=== PATIENT | male | born 1950 | race Caucasian/White ===

== ENCOUNTER 2017-03-30 15:38 | Emergency (ER) | payer OTHER ==
[2017-03-30 16:15] VITALS: BP 131/62
[2017-03-30] MEDS ORDERED: Ketorolac 30 MG/ML SDV IVPUSH ONE (16:30)
--- NOTE | 2017-03-30 16:48 | EDM.PDOC ---
ED HPI GENERAL MEDICAL PROBLEM - General Chief Complaint: General Stated Complaint: leg pain Time Seen by Provider: 03/30/17 16:12 Source of Information: Reports: Patient History Limitations: Reports: No Limitations - History of Present Illness INITIAL COMMENTS - FREE TEXT/NARRATIVE: Patient presents with bilat leg pain for the past week. He says it has been getting more and more painful, even keeping him awake at night. [facility] to check for [facility] cl[facility]. He denies any blood clots in the past. He has had two surgeries in the past 6 months: right total shoulder in October and the left shoulder 6.5 weeks ago. This has involved being more sedentary than usual. He is not on blood thinners except he took a couple aspirin in last 1-2 days. Treatments BOWL ATTENDANT: Reports: Aspirin Other Treatments BOWL ATTENDANT: 03/29/17 Bilateral Leg Pain Score (Numeric/FACES): 9 - Related Data Allergies Allergy/AdvReac Type Severity Reaction Status Date / Time No Known Drug Allergies Allergy Cannot Verified 03/30/17 16:28 Remember Home Meds: Home Meds . [Unable to Verify Home Med List] 03/30/17 [History] Past Medical History HEENT History: Reports: Impaired Vision Cardiovascular History: Reports: Hypertension - Past Surgical History Musculoskeletal Surgical History: Reports: Knee Replacement, Shoulder Replacement Other Musculoskeletal Surgeries/Procedures:: both shoulders replaced this year, One in October and one in January. left knee replacement few years ago ED ROS GENERAL - Review of Systems Review Of Systems: See Below Constitutional: Denies: Fever, Chills, Malaise, Weakness HEENT: Denies: Vision Change Respiratory: Denies: Shortness of Breath, Cough Cardiovascular: Denies: Chest Pain, Lightheadedness, Syncope GI/Abdominal: Denies: Abdominal Pain, Vomiting : Reports: No Symptoms Musculoskeletal: Reports: Leg Pain. Denies: Neck Pain, Shoulder Pain, Arm Pain , Back Pain, Hand Pain, Foot Pain Skin: Denies: Cyanosis, Jaundice, Mottled, Pallor, Diaphoresis Neurological: Denies: Confusion, Dizziness, Headache Psychiatric: Denies: Agitation, Anxiety, Confusion Hematologic/Lymphatic: Denies: Easy Bleeding ED EXAM, GENERAL - Physical Exam Exam: See Below Exam Limited By: No Limitations General Appearance: Alert, WD/WN, No Apparent Distress Eye Exam: Bilateral Eye: EOMI, Normal Inspection, PERRL Ears: Normal External Exam, Hearing Grossly Normal Nose: Normal Inspection, No Blood Throat/Mouth: Normal Inspection, Normal Lips, Normal Voice, No Airway Compromise Head: Atraumatic, Normocephalic Neck: Full Range of Motion Respiratory/Chest: No Respiratory Distress, Lungs Clear, Normal Breath Sounds Cardiovascular: Normal Peripheral Pulses, Regular Rate, Rhythm, No Murmur Peripheral Pulses: 2+: Radial (L), Radial (R), Posterior Tibial (L), Posterior Tibial (R) GI/Abdominal: No Distention Extremities: No Pedal Edema, Normal Capillary Refill, Other (The bilat calves are tender to mild squeeze and medial thighs are tender to palpation. The legs are somewhat tender to palpation in general. Calves measure 36 cm symmetrically. The legs are non-red, warm to touch but not unusually warm. No Bingham's cyst, superficial phlebitis, varicosities or cellulitis). No: Terra's Sign, Mottled, Pallor, Redness Neurological: Alert, Oriented, Normal Cognition, No Motor/Sensory Deficits Psychiatric: Normal Affect, Normal Mood Skin Exam: Warm, Dry, Intact, Normal Color, No Rash Course - Vital Signs Last Recorded V/S: Last Vital Signs Temp 99.2 F 03/30/17 16:13 Pulse 109 H 03/30/17 16:13 Resp 20 03/30/17 16:13 BP 131/62 03/30/17 16:13 Pulse Ox 96 03/30/17 16:13 - Orders/Labs/Meds Orders: Active Orders 24 hr Category Date Time Status BASIC METABOLIC PANEL,BMP [CHEM] Stat Lab 03/30/17 16:28 Ordered CBC WITH AUTO DIFF [HEME] Stat Lab 03/30/17 16:28 Ordered D Dimer [D-DIMER QUANTITATIVE] [COAG] Stat Lab 03/30/17 16:28 Ordered Meds: Medications Discontinued Medications Generic Name Dose Route Start Last Admin Trade Name Jim PRN Reason Stop Dose Admin Ketorolac Tromethamine 30 mg 03/30/17 16:30 Toradol IVPUSH 03/30/17 16:31 ONETIME ONE - Re-Assessments/Exams Free Text/Narrative Re-Assessment/Exam: 03/30/17 16:41 After exam I calculated a Wells Score of 2 which puts him at moderate probability. Will do D-dimer and other labs. He has no history of kidney disease or contraindications to NSAIDS so will give Toradol for pain control. Patient is stable. 03/30/17 17:43 D-dimer is 975. Discussed findings and recommendations with patient; he will go to [facility] in [place]. I called there and discussed case with Dr. Chong who accepted for transfer. Pt will go by private vehicle; a friend is coming to get him. Patient remained stable throughout ER course and pain is down from 9 to 3 after Toradol. Departure - Departure Time of Disposition: 17:38 Disposition: DC/Tfer to Acute Hospital 02 Condition: Good Clinical Impression: Leg pain, bilateral, Elevated d-dimer - Discharge Information Referrals: PCP,Not In Area [Primary Care Provider] - Additional Instructions: 1. Go directly to [facility] in [place]. I talked with Dr. Chong there who is expecting you. - My Orders Last 24 Hours: My Active Orders 03/30/17 16:28 BASIC METABOLIC PANEL,BMP [CHEM] Stat CBC WITH AUTO DIFF [HEME] Stat D Dimer [D-DIMER QUANTITATIVE] [COAG] Stat - Assessment/Plan Last 24 Hours: My Active Orders 03/30/17 16:28 BASIC METABOLIC PANEL,BMP [CHEM] Stat CBC WITH AUTO DIFF [HEME] Stat D Dimer [D-DIMER QUANTITATIVE] [COAG] Stat
== END 2017-03-30 17:55 ==
LOC: KA.ED 15:38
DX: M79.604 Pain in right leg (principal); M79.605 Pain in left leg; R79.1 Abnormal coagulation profile; I10 Essential (primary) hypertension; Z96.611 Presence of right artificial shoulder joint; Z96.612 Presence of left artificial shoulder joint; Z96.652 Presence of left artificial knee joint
CPT/HCPCS: 80048; 85025; 85379; 96374; 99284; J1885

== ENCOUNTER 2017-04-02 16:56 | Emergency (ER) | payer OTHER ==
[2017-04-02] MEDS ORDERED: methylPREDNISolone Acetate 80 MG/ML SDV IM ONE (18:40)
[2017-04-02] MEDS ORDERED: traMADol 50 MG Tab PO ONE (18:40)
[2017-04-02 18:47] LABS: CHLORIDE,CL 102 mmol/L (98-115); SODIUM,NA 141 mmol/L (136-145)
--- NOTE | 2017-04-02 19:37 | EDM.PDOC ---
ED HPI GENERAL MEDICAL PROBLEM - General Chief Complaint: Lower Extremity Injury/Pain Stated Complaint: PAIN IN LEGS Time Seen by Provider: 04/02/17 18:20 Source of Information: Reports: Patient History Limitations: Reports: No Limitations - History of Present Illness INITIAL COMMENTS - FREE TEXT/NARRATIVE: 66-year-old male presents to emergency room with complaints of bilateral leg and hip pain, right greater left. Patient was seen emergency room 72 hours ago with a similar complaints of. He was seen and evaluated in the emergency room Raciel Moran. He was discharged that evening and placed on some potassium replacement pills. Patient was able to ride his bike to the emergency room this evening. He has been riding his bike over the last several days due to not having a vehicle to drive. He denies significant numbness or tingling in his legs. He denies significant weakness in the legs. He denies any swelling in the legs. He denies significant back pain currently. He has no saddle paresthesias and no follow or bladder incontinence. Activity seems to increase his pain. He' s had a left knee replacement in the past. He denies significant swelling warmth or redness to his left knee. He states that his right knee and both his hips are arthritic. He has a follow-up appointment next Monday with the [facility] for his hip and knee arthritis. He denies any recent trauma or fall. Onset: Gradual Onset Date: 03/30/17 Duration: Day(s): Location: Reports: Pelvis, Lower Extremity, Left, Lower Extremity, Right Severity: Moderate Improves with: Reports: Rest Worsens with: Reports: Movement Context: Reports: Activity, Exercise Associated Symptoms: Reports: No Other Symptoms Bilateral Leg Pain Score (Numeric/FACES): 9 - Related Data Allergies Allergy/AdvReac Type Severity Reaction Status Date / Time bupropion [From Wellbutrin] Allergy Hives Verified 04/02/17 17:11 red dye Allergy Hives Verified 04/02/17 17:11 yellow dye Allergy Hives Verified 04/02/17 17:11 Home Meds: Home Meds . [Unable to Verify Home Med List] 03/30/17 [History] Past Medical History HEENT History: Reports: Cataract, Impaired Vision Cardiovascular History: Reports: Hypertension Respiratory History: Reports: Sleep Apnea Other Respiratory History: CPAP doesn't use due to frequent trips to the bathroom Gastrointestinal History: Reports: Hiatal Hernia Genitourinary History: Reports: BPH, Prostate Disorder, Retention, Urinary Musculoskeletal History: Reports: None Neurological History: Reports: Concussion Psychiatric History: Reports: Anxiety, Depression, Panic Attack Endocrine/Metabolic History: Reports: Other (See Below) Other Endocrine/Metabolic History: nodule on the thyroid Hematologic History: Reports: Other (See Below) Other Hematologic History: refuses blood transfusions - Infectious Disease History Infectious Disease History: Reports: Chicken Pox, Measles, Mumps - Past Surgical History Head Surgeries/Procedures: Reports: None HEENT Surgical History: Reports: Adenoidectomy, Tonsillectomy Cardiovascular Surgical History: Reports: None Respiratory Surgical History: Reports: None GI Surgical History: Reports: Colonoscopy, Hernia Repair/Other Endocrine Surgical History: Reports: Thyroid Biopsy Neurological Surgical History: Reports: Other (See Below) Other Neurological Surgeries/Procedures: sciatic nerve surgery Musculoskeletal Surgical History: Reports: Knee Replacement, Shoulder Replacement, Other (See Below) Other Musculoskeletal Surgeries/Procedures:: both shoulders replaced this year, One in October and one in January. left knee replacement few years ago, surgery to sciatic nerve both sides Dermatological Surgical History: Reports: None Social & Family History - Family History Family Medical History: Noncontributory - Tobacco Use Smoking Status *Q: Former Smoker Used Tobacco, but Quit: Yes Month Tobacco Last Used: january - Caffeine Use Caffeine Use: Reports: Coffee, Energy Drinks, Tea - Alcohol Use Days Per Week of Alcohol Use: 7 Number of Drinks Per Day: 2 Total Drinks Per Week: 14 - Recreational Drug Use Recreational Drug Use: No Review of Systems - Review of Systems Review Of Systems: See Below Constitutional: Reports: No Symptoms Eyes: Reports: No Symptoms Ears: Reports: No Symptoms Nose: Reports: No Symptoms Mouth/Throat: Reports: No Symptoms Respiratory: Reports: No Symptoms Cardiovascular: Reports: No Symptoms GI/Abdominal: Reports: No Symptoms Musculoskeletal: Reports: Leg Pain, Joint Pain, Muscle Pain, Muscle Stiffness. Denies: Back Pain, Joint Swelling Skin: Reports: No Symptoms Neurological: Reports: No Symptoms Psychiatric: Reports: No Symptoms ED EXAM, GENERAL - Physical Exam Exam: See Below Exam Limited By: No Limitations General Appearance: Alert, WD/WN, No Apparent Distress Back Exam: Normal Inspection, Full Range of Motion Extremities: Normal Inspection, Other (he has pain with internal rotation flexion of his right hip and left hip with limited motion of the right hip to about 10 of internal rotation left hip internal rotation is 20 flexion is about 110 bilaterally. He has mild crepitation over the right knee with general range of motion. No significant pain with gentle motion of his right knee. No swelling or warmth left knee exam shows well-healed incision motion is 0-120. Both knees are stable to varus valgus stresses) Neurological: Alert, Oriented, No Motor/Sensory Deficits Psychiatric: Depressed Mood, Flat Affect Skin Exam: Warm, Dry, Intact, Normal Color, No Rash Lymphatic: No Adenopathy Course - Vital Signs Last Recorded V/S: Last Vital Signs Temp 98.3 F 04/02/17 17:05 Pulse 100 04/02/17 17:05 Resp 16 04/02/17 17:05 BP 178/92 H 04/02/17 17:05 Pulse Ox 97 04/02/17 17:05 - Orders/Labs/Meds Orders: Active Orders 24 hr Category Date Time Status Hip Min 2V w Pelvis Bi [CR] Stat Exams 04/02/17 17:49 Taken Lumbar Spine 2 or 3V [CR] Stat Exams 04/02/17 17:47 Taken Labs: Laboratory Tests 04/02/17 04/02/17 Range/Units 18:15 18:15 WBC 6.6 (5.0-10.0) 10^3/uL RBC 4.63 (4.50-6.00) 10^6/uL Hgb 12.6 L (13.0-17.0) g/dL Hct 37.0 L (40.0-52.0) % MCV 80.0 L (82.0-92.0) fL MCH 27.1 (27.0-31.0) pg MCHC 33.9 (32.0-36.0) g/dL RDW 14.2 (11.5-14.5) % Plt Count 344 H (150-300) 10^3/uL MPV 6.2 L (7.4-10.4) fL Neut % (Auto) 55.1 (50.0-70.0) % Lymph % (Auto) 24.1 (20.0-40.0) % [place] % (Auto) 9.7 H (2.0-8.0) % Eos % (Auto) 9.3 H (1.0-3.0) % Baso % (Auto) 1.8 H (0.0-1.0) % Neut # (Auto) 3.7 (2.5-7.0) 10^3/uL Lymph # (Auto) 1.6 (1.0-4.0) 10^3/uL [place] # (Auto) 0.6 (0.1-0.8) 10^3/uL Eos # (Auto) 0.6 H (0.1-0.3) 10^3/uL Baso # (Auto) 0.1 (0.0-0.1) 10^3/uL Sodium 141 (136-145) mmol/L Potassium 3.5 (3.3-5.3) mmol/L Chloride 102 (98-115) mmol/L Carbon Dioxide 26.4 (21.0-32.0) mmol/L BUN 16 (6-25) mg/dL Creatinine 1.06 (0.51-1.17) mg/dL Est Cr Clr Drug Dosing TNP Estimated GFR (MDRD) > 60 mL/min Glucose 102 (70-110) mg/dL Calcium 9.4 (8.7-10.3) mg/dL Ethyl Alcohol < 3 (None detected) mg/dL Meds: Medications Discontinued Medications Generic Name Dose Route Start Last Admin Trade Name Anjelq PRN Reason Stop Dose Admin Methylprednisolone Acetate 160 mg 04/02/17 18:40 04/02/17 18:58 Depo-Medrol IM 04/02/17 18:41 160 mg ONETIME ONE Administration Tramadol HCl 100 mg 04/02/17 18:40 04/02/17 18:56 Ultram PO 04/02/17 18:41 100 mg ONETIME ONE Administration Tramadol HCl Confirm 04/02/17 19:44 Ultram Administered 04/02/17 19:45 Dose 100 [address] .[address] [facility] - Radiology Interpretation Free Text/Narrative:: X-rays bilateral hips Interpretation: there is bilateral hip dysplasia with loss of joint space superiorly right greater than left. No evidence of fracture or dislocation Impression: Bilateral hip DJD right greater than. 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 Ultram 50 mg 1 by mouth every 6 hours when necessary pain #30 dispensed 2. Follow-up with orthopedics at regular scheduled appointment next Monday for your hip DJD. 3. Avoid activities that cause pain discomfort such as riding her bike. - My Orders Last 24 Hours: My Active Orders 04/02/17 17:47 Lumbar Spine 2 or 3V [CR] Stat 04/02/17 17:49 Hip Min 2V w Pelvis Bi [CR] Stat - Assessment/Plan Last 24 Hours: My Active Orders 04/02/17 17:47 Lumbar Spine 2 or 3V [CR] Stat 04/02/17 17:49 Hip Min 2V w Pelvis Bi [CR] Stat Assessment:: 1. Bilateral hip DJD 2. Lumbar spine DJD Plan: 1. Ultram 50 mg 1 by mouth every 6 hours when necessary pain #30 dispensed 2. Follow-up with orthopedics at regular scheduled appointment next Monday for your hip DJD. 3. Avoid activities that cause pain discomfort such as riding her bike.
[2017-04-02] MEDS ORDERED: traMADol 50 MG Tab ONE (19:44)
[2017-04-02 23:10] VITALS: BP 156/80
== END 2017-04-02 19:50 | disposition home or self-care (01) ==
LOC: KA.ED 16:56
DX: M47.816 Spondylosis without myelopathy or radiculopathy, lumbar region (principal); M16.0 Bilateral primary osteoarthritis of hip; F41.9 Anxiety disorder, unspecified; F32.9 Major depressive disorder, single episode, unspecified; I10 Essential (primary) hypertension; Z88.5 Allergy status to narcotic agent; Z91.048 Other nonmedicinal substance allergy status; Z90.89 Acquired absence of other organs; Z87.891 Personal history of nicotine dependence
CPT/HCPCS: 36415; 72100; 73521; 80048; 85025; 96372; 99283; A9270; G0480; J1040

== ENCOUNTER 2017-05-24 14:17 | Emergency (ER) | payer OTHER ==
[2017-05-24 14:33] VITALS: BP 175/86
[2017-05-24] MEDS ORDERED: Dexamethasone 10 MG/ML SDV IM ONE (14:57)
[2017-05-24] MEDS ORDERED: Diazepam 5 MG Tab PO ONE (14:57)
[2017-05-24] MEDS ORDERED: Ketorolac 60 MG/2 ML SDV IM ONE (14:57)
--- NOTE | 2017-05-24 16:01 | EDM.PDOC ---
ED HPI GENERAL MEDICAL PROBLEM - General Chief Complaint: Back Pain or Injury Stated Complaint: BACK AND HIP PAIN Time Seen by Provider: 05/24/17 14:56 Source of Information: Reports: Patient History Limitations: Reports: No Limitations - History of Present Illness INITIAL COMMENTS - FREE TEXT/NARRATIVE: PATIENT IS A 67-YEAR-OLD GENTLEMAN WHO PRESENTS TO THE ER THIS AFTERNOON WITH A COMPLAINT OF RIGHT HIP AND LOWER BACK PAIN. DISCOMFORT IS DESCRIBED CHRONIC , RADIATES TO RIGHT LOWER EXTREMITY, HAS BEEN PRESENT FOR 30+ YEARS AND IS BEING CARED [facility]. HE DENIES ANY RECENT INJURY OR INSULT. DENIES SADDLE ANESTHESIA, TESTICULAR PAIN, BOWEL OR URINARY INCONTINENCE. SAYS HE TAKES MEDICATION PRESCRIBED FROM THE [facility], BUT HAS NOT RECEIVED IN THE MAIL OF YET. PATIENT DENIES CHEST PAIN, SHORTNESS OF BREATH, ABDOMINAL PAIN, NAUSEA, VOMITING, DIARRHEA. Onset: Gradual Duration: Chronic Location: Reports: Back, Lower Extremity, Right Quality: Reports: Ache Severity: Mild Improves with: Reports: None Worsens with: Reports: Movement Context: Denies: Trauma Associated Symptoms: Reports: No Other Symptoms Right Hip Pain Score (Numeric/FACES): 10 - Related Data Allergies Allergy/AdvReac Type Severity Reaction Status Date / Time bupropion [From Wellbutrin] Allergy Hives Verified 04/02/17 17:11 metoclopramide [From Reglan] Allergy Hives Verified 05/24/17 14:35 red dye Allergy Hives Verified 04/02/17 17:11 yellow dye Allergy Hives Verified 04/02/17 17:11 Home Meds: Home Meds Prednisone [IMW: predniSONE] 40 mg PO WITHBREAKFAST #14 tab 05/24/17 [Rx] Past Medical History HEENT History: Reports: Cataract, Impaired Vision Cardiovascular History: Reports: Hypertension Respiratory History: Reports: Sleep Apnea Other Respiratory History: CPAP doesn't use due to frequent trips to the bathroom Gastrointestinal History: Reports: Hiatal Hernia Genitourinary History: Reports: BPH, Prostate Disorder, Retention, Urinary Musculoskeletal History: Reports: None Neurological History: Reports: Concussion Psychiatric History: Reports: Anxiety, Depression, Panic Attack Endocrine/Metabolic History: Reports: Other (See Below) Other Endocrine/Metabolic History: nodule on the thyroid Hematologic History: Reports: Other (See Below) Other Hematologic History: refuses blood transfusions - Infectious Disease History Infectious Disease History: Reports: Chicken Pox, Measles, Mumps - Past Surgical History Head Surgeries/Procedures: Reports: None HEENT Surgical History: Reports: Adenoidectomy, Tonsillectomy Cardiovascular Surgical History: Reports: None Respiratory Surgical History: Reports: None GI Surgical History: Reports: Colonoscopy, Hernia Repair/Other Endocrine Surgical History: Reports: Thyroid Biopsy Neurological Surgical History: Reports: Other (See Below) Other Neurological Surgeries/Procedures: sciatic nerve surgery Musculoskeletal Surgical History: Reports: Knee Replacement, Shoulder Replacement, Other (See Below) Other Musculoskeletal Surgeries/Procedures:: both shoulders replaced this year, One in October and one in January. left knee replacement few years ago, surgery to sciatic nerve both sides Dermatological Surgical History: Reports: None Social & Family History - Family History Family Medical History: Noncontributory - Tobacco Use Smoking Status *Q: Former Smoker Used Tobacco, but Quit: Yes Month Tobacco Last Used: january - Caffeine Use Caffeine Use: Reports: Coffee, Energy Drinks, Tea - Alcohol Use Days Per Week of Alcohol Use: 7 Number of Drinks Per Day: 2 Total Drinks Per Week: 14 - Recreational Drug Use Recreational Drug Use: No ED ROS GENERAL - Review of Systems Review Of Systems: ROS reveals no pertinent complaints other than HPI. Constitutional: Reports: No Symptoms HEENT: Reports: No Symptoms Respiratory: Reports: No Symptoms Cardiovascular: Reports: No Symptoms Endocrine: Reports: No Symptoms GI/Abdominal: Reports: No Symptoms : Reports: No Symptoms Musculoskeletal: Reports: Back Pain, Leg Pain Skin: Reports: No Symptoms Neurological: Reports: No Symptoms Psychiatric: Reports: No Symptoms Hematologic/Lymphatic: Reports: No Symptoms Immunologic: Reports: No Symptoms ED EXAM,LOWER BACK PAIN/INJURY - Physical Exam Exam: See Below Exam Limited By: No Limitations General Appearance: Alert, WD/WN, No Apparent Distress Throat/Mouth: Normal Inspection, Normal Oropharynx, No Airway Compromise Head: Atraumatic, Normocephalic Neck: Normal Inspection, Supple, Non-Tender, Full Range of Motion Respiratory/Chest: No Respiratory Distress, Lungs Clear, Normal Breath Sounds, No Accessory Muscle Use, Chest Non-Tender Cardiovascular: Regular Rate, Rhythm, No Murmur GI/Abdominal: Normal Bowel Sounds, Soft, Non-Tender, No Organomegaly, No Distention, No Abnormal Bruit, No Mass Back Exam: Paraspinal Tenderness. No: CVA Tenderness (L), CVA Tenderness (R), Vertebral Tenderness Extremities: No Pedal Edema, Other (RIGHT LOWER EXTREMITY PAIN, LATERAL THIGH RADIATING TO RIGHT ANKLE.) Psychiatric: Normal Affect, Normal Mood Skin Exam: Warm, Dry, Intact, Normal Color, No Rash Lymphatic: No Adenopathy Course - Vital Signs Last Recorded V/S: Last Vital Signs Temp 98.1 F 05/24/17 14:26 Pulse 117 H 05/24/17 14:26 Resp 20 05/24/17 14:26 BP 175/86 H 05/24/17 14:26 Pulse Ox 96 05/24/17 14:26 - Orders/Labs/Meds Meds: Medications Discontinued Medications Generic Name Dose Route Start Last Admin Trade Name Jim PRN Reason Stop Dose Admin Dexamethasone 8 mg 05/24/17 14:57 05/24/17 15:34 Dexamethasone IM 05/24/17 14:58 8 mg ONETIME ONE Administration Diazepam 10 mg 05/24/17 14:57 05/24/17 15:32 Valium. PO 05/24/17 14:58 10 mg ONETIME ONE Administration Ketorolac Tromethamine 60 mg 05/24/17 14:57 05/24/17 15:36 Toradol IM 05/24/17 14:58 60 mg ONETIME ONE Administration - Re-Assessments/Exams Free Text/Narrative Re-Assessment/Exam: 05/24/17 16:01 PATIENT AFEBRILE, NONTOXIC APPEARING, VITAL SIGNS STABLE. PAIN SOMEWHAT RELIEVED. WE'LL SEND PATIENT HOME WITH PREDNISONE, HE IS EXPECTING MAIL ORDER VAL[facility]UM FROM THE [facility]. PATIENT TO FOLLOW-UP AT THE [facility] FOR CHRONIC CONDITION. Departure - Departure Time of Disposition: 16:08 Disposition: Home, Self-Care 01 Condition: Good Clinical Impression: Chronic back pain greater than 3 months duration, Sciatic leg pain Hip pain, chronic Qualifiers: Laterality: right Qualified Code(s): M25.551 - Pain in right hip; G89.29 - Other chronic pain; G89.29 - Other chronic pain - Discharge Information Instructions: Back Pain, Adult, [id number], Chronic Back Pain, Hip Pain, Sciatica, [id number] Referrals: PCP,Not In Area [Primary Care Provider] - Forms: ED Department Discharge Additional Instructions: [facility]. RETURN TO ER SOONER IF SYMPTOMS CONTINUE OR WORSEN - Assessment/Plan Assessment:: CHRONIC BACK AND HIP PAIN [facility]: [facility]
== END 2017-05-24 16:20 | disposition home or self-care (01) ==
LOC: KA.ED 14:17
DX: G89.29 Other chronic pain (principal); M25.551 Pain in right hip; M54.40 Lumbago with sciatica, unspecified side; I10 Essential (primary) hypertension; Z96.652 Presence of left artificial knee joint; Z87.891 Personal history of nicotine dependence; Z88.8 Allergy status to other drugs, medicaments and biological substances; Z91.048 Other nonmedicinal substance allergy status
CPT/HCPCS: 96372; 99283; A9270; J1100; J1885

== ENCOUNTER 2017-07-28 15:17 | Emergency (ER) | payer OTHER ==
[2017-07-28 15:32] VITALS: BP 152/85
[2017-07-28] MEDS ORDERED: methylPREDNISolone Sodium Succinate 125 MG/2 ML SDV IM ONE (16:05)
[2017-07-28] MEDS ORDERED: diphenhydrAMINE 25 MG Cap PO ONE (16:06)
[2017-07-28] MEDS ORDERED: hydrOXYzine HCl 50 MG/ML SDV IM ONE (16:07)
--- NOTE | 2017-07-28 16:18 | EDM.PDOC ---
ED HPI GENERAL MEDICAL PROBLEM - General Chief Complaint: General Stated Complaint: rash Time Seen by Provider: 07/28/17 15:45 Source of Information: Reports: Patient History Limitations: Reports: No Limitations - History of Present Illness INITIAL COMMENTS - FREE TEXT/NARRATIVE: 67-year-old male presents to the emergency room with complaints of itching and rash over his arms and legs and back. He's had these symptoms for approximately 2 weeks if not longer. He's been taking Benadryl every 6 hours for the itching. The rash does not seem to be improving. It does itch. He denies significant contact with any specific change in laundry detergent or bedding. States that he is going through quite a stressful time feels that this may be contributing to it. He denies shortness of breath, difficulty swallowing, change in voice. He has not noticed any swelling of his eyes,denies throat swelling. Onset: Gradual Duration: Week(s):, Constant Location: Reports: Back, Upper Extremity, Left, Upper Extremity, Right, Lower Extremity, Left, Lower Extremity, Right Quality: Reports: Other (itchy) Severity: Moderate Improves with: Reports: Medication (benadryl) Worsens with: Reports: None Associated Symptoms: Reports: No Other Symptoms Treatments [employer]: Reports: Other Medication(s) - Related Data Allergies Allergy/AdvReac Type Severity Reaction Status Date / Time bupropion [From Wellbutrin] Allergy Hives Verified 07/28/17 15:33 metoclopramide [From Reglan] Allergy Hives Verified 07/28/17 15:33 red dye Allergy Hives Verified 07/28/17 15:33 yellow dye Allergy Hives Verified 07/28/17 15:33 Home Meds: Home Meds Cyclobenzaprine [Flexeril] 10 mg PO TID PRN 05/24/17 [History] Hydrocodone/Acetaminophen [Hydrocodon-Acetaminophen 5-325] 1 - 2 tab PO Q6HR PRN 05/24/17 [History] Losartan [Cozaar] 100 mg PO DAILY 05/24/17 [History] Meloxicam 7.5 mg PO BID 05/24/17 [History] Omeprazole 20 mg PO DAILY 05/24/17 [History] Simvastatin [Zocor] 80 mg PO BEDTIME 05/24/17 [History] Acetaminophen [Tylenol] 650 mg PO Q4H PRN 07/28/17 [History] Carboxymethylcellulose Sodium [Refresh Tears 0.5% Ophth Soln] 15 ml EYEBOTH BID PRN 07/28/17 [History] Doxazosin [Cardura] 4 mg PO BEDTIME 07/28/17 [History] Multivitamin with Minerals [Multivitamins with Minerals] 1 each PO DAILY [History] Polyethylene Glycol 3350 [MiraLAX] 1 tbsp PO DAILY PRN 07/28/17 [History] hydrOXYzine HCl [Atarax] 25 mg PO Q6H PRN 07/28/17 [History] traZODone HCl [Trazodone HCl] 50 mg PO BEDTIME PRN 07/28/17 [History] Past Medical History HEENT History: Reports: Cataract, Impaired Vision Cardiovascular History: Reports: Hypertension Respiratory History: Reports: Sleep Apnea Other Respiratory History: CPAP doesn't use due to frequent trips to the bathroom Gastrointestinal History: Reports: Hiatal Hernia Genitourinary History: Reports: BPH, Prostate Disorder, Retention, Urinary Musculoskeletal History: Reports: None Neurological History: Reports: Concussion Psychiatric History: Reports: Anxiety, Depression, Panic Attack Endocrine/Metabolic History: Reports: Other (See Below) Other Endocrine/Metabolic History: nodule on the thyroid Hematologic History: Reports: Other (See Below) Other Hematologic History: refuses blood transfusions - Infectious Disease History Infectious Disease History: Reports: Chicken Pox, Measles, Mumps - Past Surgical History Head Surgeries/Procedures: Reports: None HEENT Surgical History: Reports: Adenoidectomy, Tonsillectomy Cardiovascular Surgical History: Reports: None Respiratory Surgical History: Reports: None GI Surgical History: Reports: Colonoscopy, Hernia Repair/Other Endocrine Surgical History: Reports: Thyroid Biopsy Neurological Surgical History: Reports: Other (See Below) Other Neurological Surgeries/Procedures: sciatic nerve surgery Musculoskeletal Surgical History: Reports: Knee Replacement, Shoulder Replacement, Other (See Below) Other Musculoskeletal Surgeries/Procedures:: both shoulders replaced this year, One in October and one in January. left knee replacement few years ago, surgery to sciatic nerve both sides Dermatological Surgical History: Reports: None Social & Family History - Family History Family Medical History: Noncontributory - Tobacco Use Smoking Status *Q: Former Smoker Used Tobacco, but Quit: Yes Month Tobacco Last Used: 1999 Second Hand Smoke Exposure: No - Caffeine Use Caffeine Use: Reports: Coffee, Energy Drinks, Tea - Alcohol Use Days Per Week of Alcohol Use: 2 Number of Drinks Per Day: 3 Total Drinks Per Week: 6 - Recreational Drug Use Recreational Drug Use: No ED ROS GENERAL - Review of Systems Review Of Systems: See Below Constitutional: Reports: No Symptoms HEENT: Reports: No Symptoms Respiratory: Reports: No Symptoms. Denies: Shortness of Breath, Wheezing Cardiovascular: Denies: Chest Pain Skin: Reports: Pruritis, Rash, Urticaria Psychiatric: Reports: Anxiety ED EXAM, GENERAL - Physical Exam Exam: See Below Exam Limited By: No Limitations General Appearance: Alert, No Apparent Distress Nose: Normal Inspection Throat/Mouth: Normal Inspection, Normal Oropharynx, Normal Voice, No Airway Compromise Head: Atraumatic Neck: Normal Inspection Respiratory/Chest: No Respiratory Distress Back Exam: Normal Inspection Extremities: Other (rashes arms and legs ) Neurological: Alert, Oriented Psychiatric: Anxious Skin Exam: Erythema, Rash Lymphatic: No Adenopathy Course - Vital Signs Last Recorded V/S: Last Vital Signs Temp 98.2 F 07/28/17 15:30 Pulse 90 07/28/17 15:30 Resp 18 07/28/17 15:30 BP 152/85 H 07/28/17 15:30 Pulse Ox 98 07/28/17 15:30 - Orders/Labs/Meds Meds: Medications Discontinued Medications Generic Name Dose Route Start Last Admin Trade Name Jim PRN Reason Stop Dose Admin Diphenhydramine HCl 50 mg 07/28/17 16:06 07/28/17 16:11 Benadryl PO 07/28/17 16:07 50 mg ONETIME ONE Administration Hydroxyzine HCl 50 mg 07/28/17 16:07 07/28/17 16:15 Vistaril IM 07/28/17 16:08 50 mg ONETIME ONE Administration Methylprednisolone Sodium Succinate 125 mg 07/28/17 16:05 07/28/17 16:11 Solu-Medrol IM 07/28/17 16:06 125 mg ONETIME ONE Administration Departure - Departure Time of Disposition: 16:24 Disposition: Home, Self-Care 01 Condition: Good Clinical Impression: Hives of unknown origin - Discharge Information Instructions: Hives Referrals: PCP,Not In Area [Primary Care Provider] - Forms: ED Department Discharge Additional Instructions: 1. Calamine lotion for itching 2. Continue with Benadryl 25-50 mg every 6 hours as needed for itching. 3. Follow-up with primary care next week if symptoms do not seem to be improving. - Assessment/Plan Assessment:: 1. Hives Plan: 1. Patient was given 125 mg IV and Solu-Medrol 2. Given 50mg IM of Vistaril 3. Given 50 mg by mouth Benadryl. 4. Recommend getting calamine lotion for itching and he'll continue with the Benadryl at home. 5. Follow-up with the primary care next week if symptoms do not seem to be improving.
== END 2017-07-28 16:35 | disposition home or self-care (01) ==
LOC: KA.ED 15:17
DX: L50.9 Urticaria, unspecified (principal); I10 Essential (primary) hypertension; Z87.891 Personal history of nicotine dependence; Z79.899 Other long term (current) drug therapy; Z91.041 Radiographic dye allergy status; Z88.8 Allergy status to other drugs, medicaments and biological substances
CPT/HCPCS: 96372; 99282; A9270; J2930; J3410

== ENCOUNTER 2017-08-06 15:27 | Emergency (ER) | payer OTHER ==
--- NOTE | 2017-08-06 16:05 | EDM.PDOC ---
ED HPI GENERAL MEDICAL PROBLEM - General Chief Complaint: Chest Pain Stated Complaint: LEFT ARM AND CHEST PAIN Time Seen by Provider: 08/06/17 15:45 Source of Information: Reports: Patient History Limitations: Reports: No Limitations - History of Present Illness INITIAL COMMENTS - FREE TEXT/NARRATIVE: Patient presents with pain in left side of neck and jaw, pain in left triceps, numbness/tingling of left forearm and fingers that started about 1515 this afternoon. This is better now but still some tingling in the fingers. He also felt lightheaded when he stood up. He tells me that for the past 5 days he has felt very short of breath when he goes up 10-12 stairs; so much that he has to stop and catch his breath for a minute. He denies any chest pain/tightness with that. He experienced that this morning at 0930 also. He has had tightness across the chest with exertion but the most recent occurrence of this was 2-3 days ago. He denies any history of ND, stroke, stents; he does have hypertension and high cholesterol. He denies tobacco use or diabetes. Left Chest Pain Score (Numeric/FACES): 2 - Related Data Allergies Allergy/AdvReac Type Severity Reaction Status Date / Time bupropion [From Wellbutrin] Allergy Hives Verified 08/06/17 15:33 metoclopramide [From Reglan] Allergy Hives Verified 08/06/17 15:33 red dye Allergy Hives Verified 08/06/17 15:33 yellow dye Allergy Hives Verified 08/06/17 15:33 Home Meds: Home Meds Cyclobenzaprine [Flexeril] 10 mg PO TID PRN 05/24/17 [History] Losartan [Cozaar] 100 mg PO DAILY 05/24/17 [History] Meloxicam 7.5 mg PO BID 05/24/17 [History] Omeprazole 20 mg PO DAILY 05/24/17 [History] Simvastatin [Zocor] 80 mg PO BEDTIME 05/24/17 [History] Acetaminophen [Tylenol] 650 mg PO Q4H PRN 07/28/17 [History] Carboxymethylcellulose Sodium [Refresh Tears 0.5% Ophth Soln] 15 ml EYEBOTH BID PRN 07/28/17 [History] Doxazosin [Cardura] 4 mg PO BEDTIME 07/28/17 [History] Multivitamin with Minerals [Multivitamins with Minerals] 1 each PO DAILY [History] Polyethylene Glycol 3350 [MiraLAX] 1 tbsp PO DAILY PRN 07/28/17 [History] hydrOXYzine HCl [Atarax] 25 mg PO Q6H PRN 07/28/17 [History] traZODone HCl [Trazodone HCl] 50 - 100 mg PO BEDTIME 07/28/17 [History] Past Medical History HEENT History: Reports: Cataract, Impaired Vision Cardiovascular History: Reports: Hypertension Respiratory History: Reports: Sleep Apnea Other Respiratory History: CPAP doesn't use due to frequent trips to the bathroom Gastrointestinal History: Reports: Hiatal Hernia Genitourinary History: Reports: BPH, Prostate Disorder, Retention, Urinary Musculoskeletal History: Reports: None Neurological History: Reports: Concussion Psychiatric History: Reports: Anxiety, Depression, Panic Attack Endocrine/Metabolic History: Reports: Other (See Below) Other Endocrine/Metabolic History: nodule on the thyroid Hematologic History: Reports: Other (See Below) Other Hematologic History: refuses blood transfusions - Infectious Disease History Infectious Disease History: Reports: Chicken Pox, Measles, Mumps - Past Surgical History Head Surgeries/Procedures: Reports: None HEENT Surgical History: Reports: Adenoidectomy, Tonsillectomy Cardiovascular Surgical History: Reports: None Respiratory Surgical History: Reports: None GI Surgical History: Reports: Colonoscopy, Hernia Repair/Other Endocrine Surgical History: Reports: Thyroid Biopsy Neurological Surgical History: Reports: Other (See Below) Other Neurological Surgeries/Procedures: sciatic nerve surgery Musculoskeletal Surgical History: Reports: Knee Replacement, Shoulder Replacement, Other (See Below) Other Musculoskeletal Surgeries/Procedures:: both shoulders replaced this year, One in October and one in January. left knee replacement few years ago, surgery to sciatic nerve both sides Dermatological Surgical History: Reports: None Social & Family History - Family History Family Medical History: Noncontributory - Tobacco Use Smoking Status *Q: Former Smoker Used Tobacco, but Quit: Yes Month Tobacco Last Used: 1999 Second Hand Smoke Exposure: No - Caffeine Use Caffeine Use: Reports: Coffee, Energy Drinks, Tea - Alcohol Use Days Per Week of Alcohol Use: 2 Number of Drinks Per Day: 3 Total Drinks Per Week: 6 - Recreational Drug Use Recreational Drug Use: No ED ROS GENERAL - Review of Systems Review Of Systems: See Below Constitutional: Denies: Fever, Chills, Weakness, Diaphoresis HEENT: Denies: Throat Pain, Vision Change Respiratory: Reports: Shortness of Breath. Denies: Wheezing, Pleuritic Chest Pain, Cough Cardiovascular: Reports: Blood Pressure Problem, Dyspnea on Exertion, Lightheadedness. Denies: Chest Pain, Syncope GI/Abdominal: Reports: Constipation. Denies: Abdominal Pain, Diarrhea, Nausea, Vomiting : Denies: Discharge, Dysuria, Flank Pain Musculoskeletal: Reports: Neck Pain, Shoulder Pain, Arm Pain. Denies: Back Pain , Hand Pain, Leg Pain Skin: Denies: Cyanosis, Jaundice, Mottled, Pallor, Diaphoresis Neurological: Denies: Confusion, Dizziness, Headache, Seizure, Syncope, Trouble Speaking, Difficulty Walking, Change in Speech Psychiatric: Denies: Agitation, Anxiety, Confusion ED EXAM, GENERAL - Physical Exam Exam: See Below Exam Limited By: No Limitations General Appearance: Alert, WD/WN, No Apparent Distress Eye Exam: Bilateral Eye: EOMI, Normal Inspection, PERRL Ears: Normal External Exam, Hearing Grossly Normal Nose: Normal Inspection, No Blood Throat/Mouth: Normal Inspection, Normal Lips, Normal Voice, No Airway Compromise Head: Atraumatic, Normocephalic Neck: Normal Inspection, Supple, Non-Tender, Full Range of Motion. No: Carotid Bruit, Lymphadenopathy (L), Lymphadenopathy (R), Tender Lateral, Tender Midline Respiratory/Chest: No Respiratory Distress, Lungs Clear, Normal Breath Sounds, No Accessory Muscle Use, Chest Non-Tender Cardiovascular: Normal Peripheral Pulses, Regular Rate, Rhythm, No Edema, No Gallop, No JVD, No Murmur, No Rub GI/Abdominal: Normal Bowel Sounds, Soft, Non-Tender, No Organomegaly, No Distention, No Abnormal Bruit Back Exam: Normal Inspection, Full Range of Motion. No: CVA Tenderness (L), CVA Tenderness (R) Extremities: Normal Inspection, Normal Range of Motion, Non-Tender, No Pedal Edema Neurological: Alert, Oriented, Normal Cognition, No Motor/Sensory Deficits Psychiatric: Normal Affect, Normal Mood Skin Exam: Warm, Dry, Intact, Normal Color, No Rash EKG INTERPRETATION EKG Date: 08/06/17 Rhythm: NSR Rate (Beats/Min): 86 [place]: Normal P-Wave: Present QRS: Normal ST-T: Normal QT: Normal Course - Vital Signs Last Recorded V/S: Last Vital Signs Temp 98.1 F 08/06/17 15:48 Pulse 87 08/06/17 16:20 Resp 18 08/06/17 16:20 BP 146/72 H 08/06/17 16:20 Pulse Ox 96 08/06/17 16:20 - Orders/Labs/Meds Labs: Laboratory Tests 08/06/17 08/06/17 08/06/17 Range/Units 15:43 15:43 19:05 WBC 8.4 (5.0-10.0) 10^3/uL RBC 4.49 L (4.50-6.00) 10^6/uL Hgb 12.0 L (13.0-17.0) g/dL Hct 38.5 L (40.0-52.0) % MCV 85.8 (82.0-92.0) fL MCH 26.8 L (27.0-31.0) pg MCHC 31.3 L (32.0-36.0) g/dL RDW 14.6 H (11.5-14.5) % Plt Count 212 (150-300) 10^3/uL MPV 7.0 L (7.4-10.4) fL Neut % (Auto) 67.3 (50.0-70.0) % Lymph % (Auto) 22.3 (20.0-40.0) % [place] % (Auto) 7.0 (2.0-8.0) % Eos % (Auto) 2.6 (1.0-3.0) % Baso % (Auto) 0.8 (0.0-1.0) % Neut # (Auto) 5.6 (2.5-7.0) 10^3/uL Lymph # (Auto) 1.9 (1.0-4.0) 10^3/uL [place] # (Auto) 0.6 (0.1-0.8) 10^3/uL Eos # (Auto) 0.2 (0.1-0.3) 10^3/uL Baso # (Auto) 0.1 (0.0-0.1) 10^3/uL Sodium 141 (136-145) mmol/L Potassium 3.7 (3.3-5.3) mmol/L Chloride 104 (98-115) mmol/L Carbon Dioxide 24.0 (21.0-32.0) mmol/L BUN 17 (6-25) mg/dL Creatinine 1.27 H (0.51-1.17) mg/dL Est Cr Clr Drug Dosing 53.49 mL/min Estimated GFR (MDRD) 57 mL/min Glucose 121 H (70-110) mg/dL Calcium 8.9 (8.7-10.3) mg/dL Troponin I 0.04 0.04 (0.00-0.070) ng/mL - Re-Assessments/Exams Free Text/Narrative Re-Assessment/Exam: 08/06/17 16:48 Patient is stable with only a feeling of swollen fingers of left hand. Sensation is intact without numbness. Labs are normal. Trop is 0.04 and we will check that again at 1900. Departure - Departure Time of Disposition: 19:45 Disposition: Home, Self-Care 01 Condition: Good Clinical Impression: Dyspnea on exertion Instructions: Angina Pectoris, [id number] Referrals: PCP,Not In Area [Primary Care Provider] - Forms: ED Department Discharge Additional Instructions: 1. Follow up with your PCP tomorrow for recheck and to set up a stress test. 2. Return to ER if significantly worsening.
[2017-08-06 16:20] VITALS: BP 146/72
== END 2017-08-06 19:55 | disposition home or self-care (01) ==
LOC: KA.ED 15:27
DX: R06.00 Dyspnea, unspecified (principal); I10 Essential (primary) hypertension; F41.0 Panic disorder [episodic paroxysmal anxiety]; F32.9 Major depressive disorder, single episode, unspecified; Z79.899 Other long term (current) drug therapy; Z87.891 Personal history of nicotine dependence; Z88.8 Allergy status to other drugs, medicaments and biological substances; Z91.048 Other nonmedicinal substance allergy status
CPT/HCPCS: 36415; 80048; 84484; 85025; 93005; 99284; 99285

== ENCOUNTER 2017-09-08 12:01 | Emergency (ER) | payer OTHER ==
--- NOTE | 2017-09-08 12:58 | EDM.PDOC ---
ED HPI GENERAL MEDICAL PROBLEM - General Chief Complaint: Allergic Reaction Time Seen by Provider: 09/08/17 12:10 Source of Information: Reports: Patient History Limitations: Reports: No Limitations - History of Present Illness INITIAL COMMENTS - FREE TEXT/NARRATIVE: Patient presents with a hive rash on arms and legs for the past week. The last 3 days haven't been as itchy but still some. He has had this a few times before and nothing except stress has been discovered as etiology. The most recent was a month ago. - Related Data Allergies Allergy/AdvReac Type Severity Reaction Status Date / Time bupropion [From Wellbutrin] Allergy Hives Verified 09/08/17 12:11 metoclopramide [From Reglan] Allergy Hives Verified 09/08/17 12:11 red dye Allergy Hives Verified 09/08/17 12:11 yellow dye Allergy Hives Verified 09/08/17 12:11 Home Meds: Home Meds Cyclobenzaprine [Flexeril] 10 mg PO TID PRN 05/24/17 [History] Losartan [Cozaar] 100 mg PO DAILY 05/24/17 [History] Meloxicam 7.5 mg PO BID 05/24/17 [History] Omeprazole 20 mg PO DAILY 05/24/17 [History] Simvastatin [Zocor] 80 mg PO BEDTIME 05/24/17 [History] Acetaminophen [Tylenol] 650 mg PO Q4H PRN 07/28/17 [History] Carboxymethylcellulose Sodium [Refresh Tears 0.5% Ophth Soln] 15 ml EYEBOTH BID PRN 07/28/17 [History] Doxazosin [Cardura] 4 mg PO BEDTIME 07/28/17 [History] Multivitamin with Minerals [Multivitamins with Minerals] 1 each PO DAILY [History] Polyethylene Glycol 3350 [MiraLAX] 1 tbsp PO DAILY PRN 07/28/17 [History] hydrOXYzine HCl [Atarax] 25 mg PO Q6H PRN 07/28/17 [History] traZODone HCl [Trazodone HCl] 50 - 100 mg PO BEDTIME 07/28/17 [History] Past Medical History HEENT History: Reports: Cataract, Impaired Vision Cardiovascular History: Reports: Hypertension Respiratory History: Reports: Sleep Apnea Other Respiratory History: CPAP doesn't use due to frequent trips to the bathroom Gastrointestinal History: Reports: Hiatal Hernia Genitourinary History: Reports: BPH, Prostate Disorder, Retention, Urinary Musculoskeletal History: Reports: None Other Musculoskeletal History: bilateral carpet tunnel Neurological History: Reports: Concussion Psychiatric History: Reports: Anxiety, Depression, Panic Attack Endocrine/Metabolic History: Reports: Other (See Below) Other Endocrine/Metabolic History: nodule on the thyroid Hematologic History: Reports: Other (See Below) Other Hematologic History: refuses blood transfusions - Infectious Disease History Infectious Disease History: Reports: Chicken Pox, Measles, Mumps - Past Surgical History Head Surgeries/Procedures: Reports: None HEENT Surgical History: Reports: Adenoidectomy, Tonsillectomy Cardiovascular Surgical History: Reports: None Respiratory Surgical History: Reports: None GI Surgical History: Reports: Colonoscopy, Hernia Repair/Other Endocrine Surgical History: Reports: Thyroid Biopsy Neurological Surgical History: Reports: Other (See Below) Other Neurological Surgeries/Procedures: sciatic nerve surgery Musculoskeletal Surgical History: Reports: Knee Replacement, Shoulder Replacement, Other (See Below) Other Musculoskeletal Surgeries/Procedures:: both shoulders replaced this year, One in October and one in January. left knee replacement few years ago, surgery to sciatic nerve both sides Dermatological Surgical History: Reports: None Social & Family History - Family History Family Medical History: Noncontributory - Tobacco Use Smoking Status *Q: Former Smoker Used Tobacco, but Quit: Yes Month Tobacco Last Used: 1999 Second Hand Smoke Exposure: No - Caffeine Use Caffeine Use: Reports: Coffee, Energy Drinks, Tea - Alcohol Use Days Per Week of Alcohol Use: 2 Number of Drinks Per Day: 3 Total Drinks Per Week: 6 - Recreational Drug Use Recreational Drug Use: No ED ROS ALLERGIC REACTION - Review of Systems Review Of Systems: See Below Constitutional: Denies: Fever, Chills, Malaise, Weakness HEENT: Denies: Ear Pain, Throat Pain, Vision Change Respiratory: Denies: Shortness of Breath, Cough Cardiovascular: Denies: Chest Pain, Lightheadedness, Syncope GI/Abdominal: Denies: Abdominal Pain, Diarrhea, Vomiting : Denies: Dysuria Musculoskeletal: Reports: No Symptoms Skin: Reports: Pruritis, Rash Neurological: Denies: Confusion, Dizziness, Headache, Seizure, Syncope, Trouble Speaking, Difficulty Walking Psychiatric: Denies: Agitation, Anxiety, Confusion ED EXAM GENERAL NO PERIP PULSE - Physical Exam Exam: See Below Exam Limited By: No Limitations General Appearance: Alert, WD/WN, No Apparent Distress Eye Exam: Bilateral Eye: EOMI, Normal Inspection, PERRL Ears: Normal External Exam, Hearing Grossly Normal Nose: Normal Inspection, No Blood Throat/Mouth: Normal Inspection, Normal Lips, Normal Voice, No Airway Compromise Head: Atraumatic, Normocephalic Neck: Normal Inspection, Full Range of Motion Respiratory/Chest: No Respiratory Distress, Lungs Clear, Normal Breath Sounds, No Accessory Muscle Use Cardiovascular: Regular Rate, Rhythm, No Murmur GI/Abdominal: No Distention Back Exam: No: CVA Tenderness (L), CVA Tenderness (R) Extremities: Normal Range of Motion, Non-Tender, No Pedal Edema, Other (several 1-2 cm mildly erythematous lesions of bilat arms and legs without excoriations. These appear consistent with moderate hives.) Neurological: Alert, Oriented, Normal Cognition, No Motor/Sensory Deficits Psychiatric: Normal Affect, Anxious Skin Exam: Warm, Dry, Intact, Rash (as above). No: Excoriations Course - Re-Assessments/Exams Free Text/Narrative Re-Assessment/Exam: 09/08/17 13:05 Discussed findings and treatment plan with patient. Advised construction recruiter evaluation which he thinks he can do through the [facility]. Discharged in stable condition. Departure - Departure Time of Disposition: 12:53 Disposition: Home, Self-Care 01 Condition: Good Clinical Impression: Hives of unknown origin - Discharge Information Referrals: Jeevan Erickson PA-C [Primary Care Provider] - Additional Instructions: 1. Drink 8 cups of water daily. 2. Take the prednisone as directed. Also use your anti-itch medication as needed. 3. Try to get in to be evaluated by a construction recruiter since this has been recurring.
[2017-09-08 13:15] VITALS: BP 130/76
== END 2017-09-08 13:08 | disposition home or self-care (01) ==
LOC: KA.ED 12:01
DX: L50.9 Urticaria, unspecified (principal); I10 Essential (primary) hypertension; Z88.8 Allergy status to other drugs, medicaments and biological substances; Z91.048 Other nonmedicinal substance allergy status; Z79.899 Other long term (current) drug therapy; Z87.891 Personal history of nicotine dependence
CPT/HCPCS: 99282

== ENCOUNTER 2017-09-24 15:01 | Emergency (ER) | payer OTHER ==
[2017-09-24 15:17] VITALS: BP 133/78
--- NOTE | 2017-09-24 16:33 | EDM.PDOC ---
ED HPI GENERAL MEDICAL PROBLEM - General Chief Complaint: Lower Extremity Injury/Pain Stated Complaint: RIGHT HIP PAIN Time Seen by Provider: 09/24/17 16:04 Source of Information: Reports: Patient History Limitations: Reports: No Limitations - History of Present Illness INITIAL COMMENTS - FREE TEXT/NARRATIVE: Patient presents with pain in right hip. This is chronic and he is hoping to get a hip replacement at the [facility] in [place] but is having trouble getting a ride down there. The last time he was there he was given a shot of Toradol and Rx for Tramadol. He occasionally uses the Tramadol and Ibuprofen or Meloxicam but is quite worried about what they might do to his stomach. He isn't eating very much, but says he hasn't really lost weight, and doesn't take the meds unless he eats with them. He is very concerned about getting cancer of the stomach or esophagus since his dad and a friend have both from that. Right Leg Pain Score (Numeric/FACES): 8 - Related Data Allergies Allergy/AdvReac Type Severity Reaction Status Date / Time bupropion [From Wellbutrin] Allergy Hives Verified 09/24/17 15:17 metoclopramide [From Reglan] Allergy Hives Verified 09/24/17 15:17 red dye Allergy Hives Verified 09/24/17 15:17 yellow dye Allergy Hives Verified 09/24/17 15:17 Home Meds: Home Meds Cyclobenzaprine [Flexeril] 10 mg PO TID PRN 05/24/17 [History] Losartan [Cozaar] 100 mg PO DAILY 05/24/17 [History] Meloxicam 7.5 mg PO BID 05/24/17 [History] Omeprazole 20 mg PO DAILY 05/24/17 [History] Simvastatin [Zocor] 80 mg PO BEDTIME 05/24/17 [History] Acetaminophen [Tylenol] 650 mg PO Q4H PRN 07/28/17 [History] Carboxymethylcellulose Sodium [Refresh Tears 0.5% Ophth Soln] 15 ml EYEBOTH BID PRN 07/28/17 [History] Doxazosin [Cardura] 4 mg PO BEDTIME 07/28/17 [History] Multivitamin with Minerals [Multivitamins with Minerals] 1 each PO DAILY [History] Polyethylene Glycol 3350 [MiraLAX] 1 tbsp PO DAILY PRN 07/28/17 [History] hydrOXYzine HCl [Atarax] 25 mg PO Q6H PRN 07/28/17 [History] traZODone HCl [Trazodone HCl] 50 - 100 mg PO BEDTIME PRN 07/28/17 [History] Past Medical History HEENT History: Reports: Cataract, Impaired Vision Cardiovascular History: Reports: Hypertension Respiratory History: Reports: Sleep Apnea Other Respiratory History: CPAP doesn't use due to frequent trips to the bathroom Gastrointestinal History: Reports: Hiatal Hernia Genitourinary History: Reports: BPH, Prostate Disorder, Retention, Urinary Musculoskeletal History: Reports: None Other Musculoskeletal History: bilateral carpet tunnel Neurological History: Reports: Concussion Psychiatric History: Reports: Anxiety, Depression, Panic Attack Endocrine/Metabolic History: Reports: Other (See Below) Other Endocrine/Metabolic History: nodule on the thyroid Hematologic History: Reports: Other (See Below) Other Hematologic History: refuses blood transfusions - Infectious Disease History Infectious Disease History: Reports: Chicken Pox, Measles, Mumps - Past Surgical History Head Surgeries/Procedures: Reports: None HEENT Surgical History: Reports: Adenoidectomy, Tonsillectomy Cardiovascular Surgical History: Reports: None Respiratory Surgical History: Reports: None GI Surgical History: Reports: Colonoscopy, Hernia Repair/Other Endocrine Surgical History: Reports: Thyroid Biopsy Neurological Surgical History: Reports: Other (See Below) Other Neurological Surgeries/Procedures: sciatic nerve surgery Musculoskeletal Surgical History: Reports: Knee Replacement, Shoulder Replacement, Other (See Below) Other Musculoskeletal Surgeries/Procedures:: both shoulders replaced this year, One in October and one in January. left knee replacement few years ago, surgery to sciatic nerve both sides Dermatological Surgical History: Reports: None Social & Family History - Family History Family Medical History: Noncontributory - Tobacco Use Smoking Status *Q: Never Smoker Used Tobacco, but Quit: Yes Month Tobacco Last Used: 1999 Second Hand Smoke Exposure: No - Caffeine Use Caffeine Use: Reports: Coffee, Energy Drinks, Tea - Alcohol Use Days Per Week of Alcohol Use: 7 Number of Drinks Per Day: 1 Total Drinks Per Week: 7 - Recreational Drug Use Recreational Drug Use: No Review of Systems - Review of Systems Review Of Systems: See Below Constitutional: Denies: Chills, Diaphoresis, Fever, Weakness Eyes: Denies: Vision Change Ears: Denies: Pain Nose: Denies: Epistaxis Mouth/Throat: Denies: Pain, Muffled Voice Respiratory: Denies: Shortness of Breath, Cough Cardiovascular: Denies: Chest Pain, Syncope GI/Abdominal: Denies: Abdominal Pain, Vomiting Genitourinary: Reports: No Symptoms Musculoskeletal: Reports: Joint Pain (right hip) Skin: Denies: Cyanosis, Jaundice, Mottled, Pallor, Diaphoresis Neurological: Denies: Confusion, Dizziness, Headache, Seizure, Syncope, Trouble Speaking, Difficulty Walking Psychiatric: Denies: Confusion ED EXAM, GENERAL - Physical Exam Exam: See Below Exam Limited By: No Limitations General Appearance: Alert, WD/WN, No Apparent Distress Eye Exam: Bilateral Eye: EOMI, Normal Inspection, PERRL Ears: Normal External Exam, Hearing Grossly Normal Nose: Normal Inspection, No Blood Throat/Mouth: Normal Inspection, Normal Lips, Normal Voice, No Airway Compromise Head: Atraumatic, Normocephalic Neck: Normal Inspection, Full Range of Motion Respiratory/Chest: No Respiratory Distress, Lungs Clear, Normal Breath Sounds, No Accessory Muscle Use Cardiovascular: Regular Rate, Rhythm, No Murmur GI/Abdominal: No Distention Extremities: Normal Range of Motion (no pain with passive ROM of right hip but he says it is more with WTB) Neurological: Alert, Oriented, Normal Cognition, No Motor/Sensory Deficits Psychiatric: Normal Affect, Anxious Skin Exam: Warm, Dry, Intact, Normal Color, No Rash Course - Vital Signs Last Recorded V/S: Last Vital Signs Temp 98.0 F 09/24/17 15:09 Pulse 111 H 09/24/17 15:09 Resp 20 09/24/17 15:09 BP 133/78 09/24/17 15:09 Pulse Ox 96 09/24/17 15:09 - Re-Assessments/Exams Free Text/Narrative Re-Assessment/Exam: 09/24/17 16:36 Discussed expectations and treatment plan. Also discussed that I want to avoid too much Toradol with his stomach concerns as it is one of the worst for causing GI bleeds/ulcers. He was given Toradol in [place] and has had it here in ER in the past. Discussed plan of eating at least a little food with his medication as needed for pain. Discharged in stable condition. Departure - Departure Time of Disposition: 16:25 Disposition: Home, Self-Care 01 Condition: Good Clinical Impression: Chronic right hip pain - Discharge Information Referrals: Jeevan Erickson PA-C [Primary Care Provider] - Additional Instructions: 1. Drink 8 cups of water daily; this will help more than you might think. 2. Take your pain medicines with at least a small amount of food. 3. Followup with your [facility]CP/[facility] as needed.
== END 2017-09-24 16:30 | disposition home or self-care (01) ==
LOC: KA.ED 15:01
DX: M25.551 Pain in right hip (principal); G89.29 Other chronic pain; I10 Essential (primary) hypertension; F41.9 Anxiety disorder, unspecified; F32.9 Major depressive disorder, single episode, unspecified; Z79.899 Other long term (current) drug therapy; Z91.09 Other allergy status, other than to drugs and biological substances; Z88.8 Allergy status to other drugs, medicaments and biological substances; Z87.891 Personal history of nicotine dependence
CPT/HCPCS: 99283

== ENCOUNTER 2017-09-26 16:24 | Emergency (ER) | payer OTHER ==
[2017-09-26] MEDS ORDERED: Ketorolac 60 MG/2 ML SDV IM ONE (17:10)
--- NOTE | 2017-09-26 17:24 | EDM.PDOC ---
ED HPI GENERAL MEDICAL PROBLEM - General Chief Complaint: Upper Extremity Injury/Pain Stated Complaint: LEFT SHOULDER PAIN Time Seen by Provider: 09/26/17 17:10 Source of Information: Reports: Patient History Limitations: Reports: No Limitations - History of Present Illness INITIAL COMMENTS - FREE TEXT/NARRATIVE: Patient is a 67-year-old gentleman who presents to the emergency department this afternoon via EMS for a fall. Patient states that he slipped on ice and landed on left shoulder. Patient denies loss of consciousness, head injury, or any other injury. Patient has chronic history of bilateral shoulder pain, and is currently on multiple medications. Patient denies chest pain, shortness of breath, blurry vision, headache, nausea, vomiting. Onset: Today Location: Reports: Upper Extremity, Left Quality: Reports: Ache Severity: Mild Improves with: Reports: None Worsens with: Reports: Movement Associated Symptoms: Reports: No Other Symptoms Left Shoulder Pain Score (Numeric/FACES): 8 - Related Data Allergies Allergy/AdvReac Type Severity Reaction Status Date / Time bupropion [From Wellbutrin] Allergy Hives Verified 09/24/17 15:17 metoclopramide [From Reglan] Allergy Hives Verified 09/24/17 15:17 red dye Allergy Hives Verified 09/24/17 15:17 yellow dye Allergy Hives Verified 09/24/17 15:17 Home Meds: Home Meds Cyclobenzaprine [Flexeril] 10 mg PO TID PRN 05/24/17 [History] Losartan [Cozaar] 100 mg PO DAILY 05/24/17 [History] Meloxicam 7.5 mg PO BID 05/24/17 [History] Omeprazole 20 mg PO DAILY 05/24/17 [History] Simvastatin [Zocor] 80 mg PO BEDTIME 05/24/17 [History] Acetaminophen [Tylenol] 650 mg PO Q4H PRN 07/28/17 [History] Carboxymethylcellulose Sodium [Refresh Tears 0.5% Ophth Soln] 15 ml EYEBOTH BID PRN 07/28/17 [History] Doxazosin [Cardura] 4 mg PO BEDTIME 07/28/17 [History] Multivitamin with Minerals [Multivitamins with Minerals] 1 each PO DAILY [History] Polyethylene Glycol 3350 [MiraLAX] 1 tbsp PO DAILY PRN 07/28/17 [History] hydrOXYzine HCl [Atarax] 25 mg PO Q6H PRN 07/28/17 [History] traZODone HCl [Trazodone HCl] 50 - 100 mg PO BEDTIME PRN 07/28/17 [History] Past Medical History HEENT History: Reports: Cataract, Impaired Vision Cardiovascular History: Reports: Hypertension Respiratory History: Reports: Sleep Apnea Other Respiratory History: CPAP doesn't use due to frequent trips to the bathroom Gastrointestinal History: Reports: Hiatal Hernia Genitourinary History: Reports: BPH, Prostate Disorder, Retention, Urinary Musculoskeletal History: Reports: None Other Musculoskeletal History: bilateral carpet tunnel Neurological History: Reports: Concussion Psychiatric History: Reports: Anxiety, Depression, Panic Attack Endocrine/Metabolic History: Reports: Other (See Below) Other Endocrine/Metabolic History: nodule on the thyroid Hematologic History: Reports: Other (See Below) Other Hematologic History: refuses blood transfusions - Infectious Disease History Infectious Disease History: Reports: Chicken Pox, Measles, Mumps - Past Surgical History Head Surgeries/Procedures: Reports: None HEENT Surgical History: Reports: Adenoidectomy, Tonsillectomy Cardiovascular Surgical History: Reports: None Respiratory Surgical History: Reports: None GI Surgical History: Reports: Colonoscopy, Hernia Repair/Other Endocrine Surgical History: Reports: Thyroid Biopsy Neurological Surgical History: Reports: Other (See Below) Other Neurological Surgeries/Procedures: sciatic nerve surgery Musculoskeletal Surgical History: Reports: Knee Replacement, Shoulder Replacement, Other (See Below) Other Musculoskeletal Surgeries/Procedures:: both shoulders replaced this year, One in October and one in January. left knee replacement few years ago, surgery to sciatic nerve both sides Dermatological Surgical History: Reports: None Social & Family History - Family History Family Medical History: Noncontributory - Tobacco Use Smoking Status *Q: Never Smoker Used Tobacco, but Quit: Yes Month Tobacco Last Used: 1999 Second Hand Smoke Exposure: No - Caffeine Use Caffeine Use: Reports: Coffee, Energy Drinks, Tea - Alcohol Use Days Per Week of Alcohol Use: 7 Number of Drinks Per Day: 1 Total Drinks Per Week: 7 - Recreational Drug Use Recreational Drug Use: No Review of Systems - Review of Systems Review Of Systems: ROS reveals no pertinent complaints other than HPI. Constitutional: Reports: No Symptoms Eyes: Reports: No Symptoms Ears: Reports: No Symptoms Nose: Reports: No Symptoms Mouth/Throat: Reports: No Symptoms Respiratory: Reports: No Symptoms Cardiovascular: Reports: No Symptoms GI/Abdominal: Reports: No Symptoms Genitourinary: Reports: No Symptoms Musculoskeletal: Reports: Shoulder Pain (Left) Skin: Reports: No Symptoms Neurological: Reports: No Symptoms Psychiatric: Reports: No Symptoms ED EXAM, GENERAL - Physical Exam Exam: Not Obtained Exam Limited By: No Limitations General Appearance: Alert, WD/WN, No Apparent Distress Eye Exam: Bilateral Eye: Normal Inspection Nose: Normal Inspection, Normal Mucosa, No Blood Throat/Mouth: Normal Inspection, Normal Oropharynx, No Airway Compromise Head: Atraumatic, Normocephalic Neck: Normal Inspection, Supple, Non-Tender, Full Range of Motion Respiratory/Chest: No Respiratory Distress, Lungs Clear, Normal Breath Sounds, No Accessory Muscle Use, Chest Non-Tender Cardiovascular: Regular Rate, Rhythm, No Murmur GI/Abdominal: Normal Bowel Sounds, Soft, Non-Tender Back Exam: Normal Inspection Extremities: Arm Pain (Left lateral shoulder tenderness with range of motion. No crepitus, no ecchymosis, no edema noted.). No: Joint Swelling Neurological: Alert, Oriented, CN II-XII Intact, Normal Cognition, No Motor/ Sensory Deficits Psychiatric: Normal Affect, Normal Mood Skin Exam: Warm, Dry, Intact, Normal Color, No Rash Course - Orders/Labs/Meds Orders: Active Orders 24 hr Category Date Time Status Shoulder Comp Lt [CR] Stat Exams 09/26/17 17:10 Ordered Meds: Medications Discontinued Medications Generic Name Dose Route Start Last Admin Trade Name Freq PRN Reason Stop Dose Admin Ketorolac Tromethamine 60 mg 09/26/17 17:10 Toradol IM 09/26/17 17:11 ONETIME ONE - Radiology Interpretation Free Text/Narrative:: Shoulder plain film shows no acute process. Hardware in place. - Re-Assessments/Exams Free Text/Narrative Re-Assessment/Exam: 09/26/17 17:38 Patient afebrile, nontoxic appearing, vital signs stable, pain control. Departure - Departure Time of Disposition: 17:38 Disposition: Home, Self-Care 01 Condition: Good Clinical Impression: Sprain of shoulder Qualifiers: Encounter type: initial encounter Shoulder sprain type: unspecified sprain Laterality: left Qualified Code(s): S43.402A - Unspecified sprain of left shoulder joint, initial encounter Shoulder contusion Qualifiers: Encounter type: initial encounter Laterality: left Qualified Code(s): S40.012A - Contusion of left shoulder, initial encounter - Discharge Information Instructions: Shoulder Sprain, Shoulder Pain, [id number] Referrals: Jeevan Erickson PA-C [Primary Care Provider] - Forms: ED Department Discharge Additional Instructions: Follow-up with PCP in next 2-3 days. Return to emergency department sooner if symptoms continue or worsen. - My Orders Last 24 Hours: My Active Orders 09/26/17 17:10 Shoulder Comp Lt [CR] Stat - Assessment/Plan Last 24 Hours: My Active Orders 09/26/17 17:10 Shoulder Comp Lt [CR] Stat Assessment:: Left shoulder pain Plan: Follow-up with PCP
[2017-09-26 18:16] VITALS: BP 143/67
== END 2017-09-26 19:45 | disposition home or self-care (01) ==
LOC: KA.ED 16:24
DX: S43.402A Unspecified sprain of left shoulder joint, initial encounter (principal); I10 Essential (primary) hypertension; Z91.041 Radiographic dye allergy status; Z79.899 Other long term (current) drug therapy; Z88.8 Allergy status to other drugs, medicaments and biological substances; Z87.891 Personal history of nicotine dependence; W00.0XXA Fall on same level due to ice and snow, initial encounter
CPT/HCPCS: 73030-LT; 96372; 99283; 99284; J1885

== ENCOUNTER 2017-10-08 09:19 | Emergency (ER) | payer OTHER ==
[2017-10-08 09:27] VITALS: BP 142/74
[2017-10-08] MEDS ORDERED: methylPREDNISolone Sodium Succinate 125 MG/2 ML SDV ONE (09:36)
[2017-10-08] MEDS ORDERED: methylPREDNISolone Sodium Succinate 125 MG/2 ML SDV IVPUSH ONE (09:39)
[2017-10-08] MEDS ORDERED: Ranitidine 50 MG/2 ML SDV IV ONE (09:46)
--- NOTE | 2017-10-08 10:20 | EDM.PDOC ---
ED HPI GENERAL MEDICAL PROBLEM - General Chief Complaint: General Stated Complaint: HIVES Time Seen by Provider: 10/08/17 09:50 Source of Information: Reports: Patient History Limitations: Reports: No Limitations - History of Present Illness INITIAL COMMENTS - FREE TEXT/NARRATIVE: 67-year-old male presents emergency room complaints of hives. States that he is recently changed his medications from the [facility] and noticed that his medications that he takes had coloring in and he has allergies to dyes. He's been taking Benadryl 50 mg about every 3 hours over last several days. This seems to help his hives and itch. He's also tried hydrocortisone. He was concerned because he supposed to have cataract surgery tomorrow at the [facility] in [place] and didn't want his surgery canceled. Comes in for further evaluation. He has no shortness of breath no difficulty talking. He denies any throat swelling tightness in his chest. Onset: Gradual Onset Date: 10/04/17 Duration: Day(s):, Improving Location: Reports: Pelvis, Lower Extremity, Left, Lower Extremity, Right Severity: Mild Improves with: Reports: Medication Worsens with: Reports: None Associated Symptoms: Reports: No Other Symptoms Treatments [employer]: Reports: Other Medication(s) - Related Data Allergies Allergy/AdvReac Type Severity Reaction Status Date / Time bupropion [From Wellbutrin] Allergy Hives Verified 10/08/17 09:27 metoclopramide [From Reglan] Allergy Hives Verified 10/08/17 09:27 red dye Allergy Hives Verified 10/08/17 09:27 yellow dye Allergy Hives Verified 10/08/17 09:27 Home Meds: Home Meds Cyclobenzaprine [Flexeril] 10 mg PO TID PRN 05/24/17 [History] Losartan [Cozaar] 100 mg PO DAILY 05/24/17 [History] Meloxicam 7.5 mg PO BID 05/24/17 [History] Omeprazole 20 mg PO DAILY 05/24/17 [History] Simvastatin [Zocor] 80 mg PO DAILY 05/24/17 [History] Acetaminophen [Tylenol] 650 mg PO Q4H PRN 07/28/17 [History] Carboxymethylcellulose Sodium [Refresh Tears 0.5% Ophth Soln] 15 ml EYEBOTH BID PRN 07/28/17 [History] Doxazosin [Cardura] 4 mg PO BEDTIME 07/28/17 [History] Multivitamin with Minerals [Multivitamins with Minerals] 1 each PO DAILY [History] Polyethylene Glycol 3350 [MiraLAX] 1 tbsp PO DAILY PRN 07/28/17 [History] hydrOXYzine HCl [Atarax] 25 mg PO Q6H PRN 07/28/17 [History] traZODone HCl [Trazodone HCl] 50 - 100 mg PO BEDTIME PRN 07/28/17 [History] Past Medical History HEENT History: Reports: Cataract, Impaired Vision Cardiovascular History: Reports: Hypertension Respiratory History: Reports: Sleep Apnea Other Respiratory History: CPAP doesn't use due to frequent trips to the bathroom Gastrointestinal History: Reports: Hiatal Hernia Genitourinary History: Reports: BPH, Prostate Disorder, Retention, Urinary Musculoskeletal History: Reports: None Other Musculoskeletal History: bilateral carpet tunnel Neurological History: Reports: None, Concussion Psychiatric History: Reports: Anxiety, Depression, Panic Attack Endocrine/Metabolic History: Reports: Other (See Below) Other Endocrine/Metabolic History: nodule on the thyroid Hematologic History: Reports: Other (See Below) Other Hematologic History: refuses blood transfusions - Infectious Disease History Infectious Disease History: Reports: Chicken Pox, Measles, Mumps - Past Surgical History Head Surgeries/Procedures: Reports: None HEENT Surgical History: Reports: Adenoidectomy, Tonsillectomy Cardiovascular Surgical History: Reports: None Respiratory Surgical History: Reports: None GI Surgical History: Reports: Colonoscopy, Hernia Repair/Other Endocrine Surgical History: Reports: Thyroid Biopsy Neurological Surgical History: Reports: Other (See Below) Other Neurological Surgeries/Procedures: sciatic nerve surgery Musculoskeletal Surgical History: Reports: Knee Replacement, Shoulder Replacement, Other (See Below) Other Musculoskeletal Surgeries/Procedures:: both shoulders replaced this year, One in October and one in January. left knee replacement few years ago, surgery to sciatic nerve both sides Dermatological Surgical History: Reports: None Social & Family History - Family History Family Medical History: Noncontributory - Tobacco Use Smoking Status *Q: Never Smoker Used Tobacco, but Quit: Yes Month/Year Tobacco Last Used: 1999 Second Hand Smoke Exposure: No - Caffeine Use Caffeine Use: Reports: None - Alcohol Use Days Per Week of Alcohol Use: 7 Number of Drinks Per Day: 1 Total Drinks Per Week: 7 - Recreational Drug Use Recreational Drug Use: No ED ROS GENERAL - Review of Systems Review Of Systems: ROS reveals no pertinent complaints other than HPI. ED EXAM, GENERAL - Physical Exam Exam: See Below Exam Limited By: No Limitations General Appearance: Alert, WD/WN, No Apparent Distress Eye Exam: Bilateral Eye: EOMI Ears: Hearing Grossly Normal Nose: Normal Inspection Throat/Mouth: Normal Inspection, Normal Lips, Normal Oropharynx, Normal Voice, No Airway Compromise Head: Atraumatic Neck: Normal Inspection Respiratory/Chest: No Respiratory Distress, Lungs Clear, Normal Breath Sounds Cardiovascular: Normal Peripheral Pulses, Regular Rate, Rhythm GI/Abdominal: Soft Back Exam: Normal Inspection Extremities: Normal Inspection, No Pedal Edema Neurological: Alert, Oriented, Normal Cognition Psychiatric: Normal Affect, Depressed Mood Skin Exam: Warm, Dry, Intact, Normal Color, Rash, Other (patient has just small area of the hives over his legs and right hip.) Lymphatic: No Adenopathy Course - Vital Signs Last Recorded V/S: Last Vital Signs Temp 96.9 F 10/08/17 09:20 Pulse 106 H 10/08/17 09:20 Resp 16 10/08/17 09:20 BP 142/74 H 10/08/17 09:20 Pulse Ox 96 10/08/17 09:20 - Orders/Labs/Meds Meds: Medications Discontinued Medications Generic Name Dose Route Start Last Admin Trade Name Jim PRN Reason Stop Dose Admin Methylprednisolone Sodium Succinate Confirm 10/08/17 09:36 10/08/17 09:54 Solu-Medrol Administered 10/08/17 09:37 Not Given Dose 125 mg .ROUTE .STK-MED ONE Methylprednisolone Sodium Succinate 125 mg 10/08/17 09:39 10/08/17 09:39 Solu-Medrol IVPUSH 10/08/17 09:40 125 mg ONETIME ONE Administration Ranitidine HCl 150 mg 10/08/17 09:46 10/08/17 09:46 Zantac IV 10/08/17 09:47 150 mg ONETIME ONE Administration - Re-Assessments/Exams Free Text/Narrative Re-Assessment/Exam: 10/08/17 10:21 Patient doing well. He is not currently itching. He was given 125 mg of Solu- Medrol and 150 milligrams of Zantac Departure - Departure Time of Disposition: 10:21 Disposition: Home, Self-Care 01 Condition: Good Clinical Impression: Localized hives - Discharge Information Instructions: Hives, [id number], Rash Referrals: PCP,Not In Area [Primary Care Provider] - Forms: ED Department Discharge Additional Instructions: 1. Benadryl 25-50 mg every 6 hours when necessary for itching. 2. Hydrocortisone cream over the area eyes 3. Zantac 150 mg twice a day for days. 4. Follow-up with primary care if symptoms do not resolve. - Assessment/Plan Assessment:: Localized hives resolving Plan: 1. Benadryl 25-50 mg every 6 hours when necessary for itching. 2. Hydrocortisone cream over the area eyes 3. Zantac 150 mg twice a day for days. 4. Follow-up with primary care if symptoms do not resolve.
== END 2017-10-08 10:20 | disposition home or self-care (01) ==
LOC: KA.ED 09:19
DX: L50.9 Urticaria, unspecified (principal); I10 Essential (primary) hypertension; F41.9 Anxiety disorder, unspecified; F32.9 Major depressive disorder, single episode, unspecified; Z87.891 Personal history of nicotine dependence; Z79.899 Other long term (current) drug therapy; Z91.09 Other allergy status, other than to drugs and biological substances; Z88.8 Allergy status to other drugs, medicaments and biological substances
CPT/HCPCS: 96374; 96375; 99282; J2780; J2930

== ENCOUNTER 2017-10-16 14:30 | Emergency (ER) | payer OTHER ==
[2017-10-16 14:46] VITALS: BP 145/84
[2017-10-16] MEDS ORDERED: methylPREDNISolone Sodium Succinate 125 MG/2 ML SDV IM ONE (15:19)
--- NOTE | 2017-10-16 15:25 | EDM.PDOC ---
ED HPI GENERAL MEDICAL PROBLEM - General Chief Complaint: Allergic Reaction Stated Complaint: HIP PAIN,HIVES Time Seen by Provider: 10/16/17 15:00 Source of Information: Reports: Patient History Limitations: Reports: No Limitations - History of Present Illness INITIAL COMMENTS - FREE TEXT/NARRATIVE: 67 YO WM presents to ER complaining of generalized rash and hives. Pt reports this is a chronic problem due to dye allergies. Pt denies any shortness of breath or difficulty swallowing. Pt denies any lightheadedness, no fever/ chills. Duration: Day(s): (2) Location: Reports: Generalized Severity: Mild Improves with: Reports: None Worsens with: Reports: None Associated Symptoms: Reports: Rash. Denies: Chest Pain, Nausea/Vomiting, Shortness of Breath Bilateral Hip Pain Score (Numeric/FACES): 8 - Related Data Allergies Allergy/AdvReac Type Severity Reaction Status Date / Time bupropion [From Wellbutrin] Allergy Hives Verified 10/16/17 14:38 metoclopramide [From Reglan] Allergy Hives Verified 10/16/17 14:38 red dye Allergy Hives Verified 10/16/17 14:38 yellow dye Allergy Hives Verified 10/16/17 14:38 green dye Allergy Hives Uncoded 10/16/17 14:38 Home Meds: Home Meds Cyclobenzaprine [Flexeril] 10 mg PO TID PRN 05/24/17 [History] Losartan [Cozaar] 100 mg PO DAILY 05/24/17 [History] Meloxicam 7.5 mg PO BID 05/24/17 [History] Omeprazole 20 mg PO DAILY 05/24/17 [History] Simvastatin [Zocor] 80 mg PO DAILY 05/24/17 [History] Acetaminophen [Tylenol] 650 mg PO Q4H PRN 07/28/17 [History] Carboxymethylcellulose Sodium [Refresh Tears 0.5% Ophth Soln] 15 ml EYEBOTH BID PRN 07/28/17 [History] Doxazosin [Cardura] 4 mg PO BEDTIME 07/28/17 [History] Multivitamin with Minerals [Multivitamins with Minerals] 1 each PO DAILY [History] Polyethylene Glycol 3350 [MiraLAX] 1 tbsp PO DAILY PRN 07/28/17 [History] hydrOXYzine HCl [Atarax] 25 mg PO Q6H PRN 07/28/17 [History] traZODone HCl [Trazodone HCl] 50 - 100 mg PO BEDTIME PRN 07/28/17 [History] Cetirizine [ZyrTEC] 10 mg PO DAILY #30 tab 10/16/17 [Rx] Famotidine [Pepcid] 20 mg PO BID #30 tab 10/16/17 [Rx] Prednisone [IMW: predniSONE] 20 mg PO WITHBREAKFAST #15 tab 10/16/17 [Rx] Past Medical History HEENT History: Reports: Cataract, Impaired Vision Cardiovascular History: Reports: Hypertension Respiratory History: Reports: Sleep Apnea Other Respiratory History: CPAP doesn't use due to frequent trips to the bathroom Gastrointestinal History: Reports: Hiatal Hernia Genitourinary History: Reports: BPH, Prostate Disorder, Retention, Urinary Musculoskeletal History: Reports: None Other Musculoskeletal History: bilateral carpet tunnel Neurological History: Reports: None, Concussion Psychiatric History: Reports: Anxiety, Depression, Panic Attack Endocrine/Metabolic History: Reports: Other (See Below) Other Endocrine/Metabolic History: nodule on the thyroid Hematologic History: Reports: Other (See Below) Other Hematologic History: refuses blood transfusions - Infectious Disease History Infectious Disease History: Reports: Chicken Pox, Measles, Mumps - Past Surgical History Head Surgeries/Procedures: Reports: None HEENT Surgical History: Reports: Adenoidectomy, Tonsillectomy Cardiovascular Surgical History: Reports: None Respiratory Surgical History: Reports: None GI Surgical History: Reports: Colonoscopy, Hernia Repair/Other Endocrine Surgical History: Reports: Thyroid Biopsy Neurological Surgical History: Reports: Other (See Below) Other Neurological Surgeries/Procedures: sciatic nerve surgery Musculoskeletal Surgical History: Reports: Knee Replacement, Shoulder Replacement, Other (See Below) Other Musculoskeletal Surgeries/Procedures:: both shoulders replaced this year, One in October and one in January. left knee replacement few years ago, surgery to sciatic nerve both sides Dermatological Surgical History: Reports: None Social & Family History - Family History Family Medical History: Noncontributory - Tobacco Use Smoking Status *Q: Never Smoker Used Tobacco, but Quit: Yes Month/Year Tobacco Last Used: 1999 Second Hand Smoke Exposure: No - Caffeine Use Caffeine Use: Reports: None - Alcohol Use Days Per Week of Alcohol Use: 7 Number of Drinks Per Day: 1 Total Drinks Per Week: 7 - Recreational Drug Use Recreational Drug Use: No ED ROS ALLERGIC REACTION - Review of Systems Review Of Systems: See Below Constitutional: Reports: No Symptoms HEENT: Reports: No Symptoms Respiratory: Reports: No Symptoms Cardiovascular: Reports: No Symptoms Endocrine: Reports: No Symptoms GI/Abdominal: Reports: No Symptoms : Reports: No Symptoms Musculoskeletal: Reports: No Symptoms Skin: Reports: Rash (generalized urticaria) Neurological: Reports: No Symptoms Psychiatric: Reports: No Symptoms Hematologic/Lymphatic: Reports: No Symptoms Immunologic: Reports: No Symptoms ED EXAM GENERAL NO PERIP PULSE - Physical Exam Exam: See Below Exam Limited By: No Limitations General Appearance: Alert, WD/WN, No Apparent Distress Throat/Mouth: Normal Inspection, Normal Lips, Normal Teeth, Normal Gums, Normal Oropharynx, Normal Voice, No Airway Compromise Head: Atraumatic, Normocephalic Neck: Normal Inspection, Supple, Non-Tender, Full Range of Motion Respiratory/Chest: No Respiratory Distress, Lungs Clear, Normal Breath Sounds, No Accessory Muscle Use, Chest Non-Tender Cardiovascular: Normal Peripheral Pulses, Regular Rate, Rhythm, No Edema, No Gallop, No JVD, No Murmur, No Rub GI/Abdominal: Normal Bowel Sounds, Soft, Non-Tender, No Organomegaly, No Distention, No Abnormal Bruit, No Mass Back Exam: Normal Inspection, Full Range of Motion, NT Extremities: Normal Inspection, Normal Range of Motion, Non-Tender, Normal Capillary Refill, No Pedal Edema Neurological: Alert, Oriented, CN II-XII Intact, Normal Cognition, Normal Gait, Normal Reflexes, No Motor/Sensory Deficits Psychiatric: Normal Affect, Normal Mood Skin Exam: Rash (generalized urticaria) Course - Vital Signs Last Recorded V/S: Last Vital Signs Temp 36.2 C 10/16/17 14:38 Pulse 73 10/16/17 14:38 Resp 16 10/16/17 14:38 BP 145/84 H 10/16/17 14:38 Pulse Ox 96 10/16/17 14:38 - Orders/Labs/Meds Orders: Active Orders 24 hr Category Date Time Status methylPREDNISolone Sod Succ [Solu-MEDROL] Med 10/16/17 15:19 Once 125 mg IM ONETIME ONE Departure - Departure Time of Disposition: 15:28 Disposition: Home, Self-Care 01 Condition: Good Clinical Impression: Urticaria, Hives of unknown origin - Discharge Information Prescriptions: Cetirizine [ZyrTEC] 10 mg PO DAILY #30 tab Famotidine [Pepcid] 20 mg PO BID #30 tab Prednisone [IMW: predniSONE] 20 mg PO WITHBREAKFAST #15 tab Instructions: Rash, Hives Referrals: Jeevan Erickson PA-C [Primary Care Provider] - - My Orders Last 24 Hours: My Active Orders 10/16/17 15:19 methylPREDNISolone Sod Succ [Solu-MEDROL] 125 mg IM ONETIME ONE - Assessment/Plan Last 24 Hours: My Active Orders 10/16/17 15:19 methylPREDNISolone Sod Succ [Solu-MEDROL] 125 mg IM ONETIME ONE Assessment:: 1. mild urticaria Plan: 1. zyrtec 10mg PO QD 2. pepcid 20mg PO BID 3. prednisone 60mg PO QD x 5 days 4. follow up at [facility] for further allergy testing 5. return to ER for worsening symptoms
== END 2017-10-16 15:38 | disposition home or self-care (01) ==
LOC: KA.ED 14:30
DX: L50.9 Urticaria, unspecified (principal); I10 Essential (primary) hypertension; Z91.041 Radiographic dye allergy status; Z88.8 Allergy status to other drugs, medicaments and biological substances; Z79.899 Other long term (current) drug therapy; Z87.891 Personal history of nicotine dependence
CPT/HCPCS: 96372; 99282; J2930